=== PATIENT | female | born 1955 | race Caucasian/White ===

== ENCOUNTER 2023-02-27 07:34 | Outpatient (REF) | payer MEDICAID, SELFPAY ==
--- NOTE | ~2023-02-27 | XR_ITS ---
EXAMINATION: XR KNEE, RIGHT CLINICAL INFORMATION: Right knee pain COMPARISON: None available. TECHNIQUE: Four views of the right knee. FINDINGS: There is mild loss of medial and patellofemoral compartment joint space. No visible acute fracture, dislocation or loose body seen. Small pancreas. Patellar enthesophyte is noted. The soft tissues are normal. XR/XR knee RT 3V IMPRESSION: Mild degenerative changes medial and patellar femoral compartment. No visible acute fracture or dislocation seen.
== END 2023-02-27 07:35 | disposition home or self-care (01) ==
LOC: HO.HOSX 07:34
PROVIDERS: Visit Provider Orthopaedic Surgery
DX: M25.561 Pain in right knee (principal)
CPT/HCPCS: 73562; 99202

== ENCOUNTER 2023-02-27 09:12 | Outpatient (AMB) | payer MEDICAID, SELFPAY ==
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
[2023-02-27 09:50] VITALS: BMI 31.6
== END 2023-02-27 10:05 | disposition home or self-care (01) ==
PROVIDERS: PCP Internal Medicine; Visit Provider Orthopaedic Surgery
DX: M25.561 Pain in right knee (principal)
CPT/HCPCS: 99202

== ENCOUNTER 2023-04-03 13:05 | Outpatient (AMB) | payer MEDICAID, SELFPAY ==
[2023-04-03 13:20] VITALS: BMI 31.6
--- NOTE | 2023-04-03 13:20 | A.OFFVIS_ITS ---
Intake Vital Signs 04/03/23 13:20 Height 5 ft 5 in Weight 190 lb BMI 31.6 Intake Visit Reasons: New Prob- B/L hand and finger pain Intake Note: Jose 67 yr old female who is right hand dominant, presents today with her son for pain in bilateral numbness and tingling. There from [facility], and her son is acting as an japanese interpreter. She States her right hand is currently worse. States this started about 2 yrs, wakes her up at night due to numbness and has weakness. She feels like the numbness is more intermittent than constant Also son mentioned she is having cramping in both hands but right is still worse. She also gets pain radiating up both arms to her shoulders and her neck bilaterally. No EMG done. Denies bracing, therapy or injection. Patient states she has to take a sleeping pill to help get good sleep. Hx of DM but is not sure of her A1C number. Allergies No Known Allergies Allergy (Verified 04/03/23 13:30) HPI New Prob- B/L hand and finger pain HPI Details Jose Prater is a 67-year-old right hand dominant woman who presents today with her son to the office for an evaluation of bilateral hand numbness and tingling. There from [facility], and her son is acting as an japanese interpreter. She states that her right hand is currently worse. She states that her numbness and pain started about 2 years ago. She wakes up at night due to numbness and has weakness. She feels that radiates up her arm. She also complains of pain that radiates up her arm to her shoulder to her neck bilaterally. The patient?s son mentioned she is having cramping in both hands but right is still worse. No EMG done. Denies bracing, therapy or injection. The patient states that she has to take a sleeping pill to help get good sleep. She has a history of DM but is not sure of her HbA1C number. 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 Review of Systems Const All systems reviewed & are unremarkable except as noted in HPI and below Physical Exam Vital Signs: BMI result Body Mass Index 31.6 Const General: cooperative, healthy appearing and no acute distress Orientation/consciousness: patient oriented x3 HEENT Head: Yes normocephalic and Yes atraumatic Eyes EOM: EOMs intact bilaterally Resp Effort & Inspection: normal respiratory effort and able to speak in complete sentences Cardio Jugular venous distension: no JVD Skin General skin exam: turgor normal, ecchymosis (No) and erythema (No) Rashes: no rashes Trauma: no lacerations or abrasions Neuro Other: Vascular: Cap refill brisk General: patient oriented x3 Extrem Other: Evaluation of bilateral Upper Extremity: Neuro: Median, ulnar, radial nerves motor and sensory grossly intact today. No thenar or intrinsic wasting. Good finger cross, abduction/adduction, and APB muscle belly firing bilaterally.. Vascular: Cap refill brisk. ROM: Can bring fingers closed to a fist and back out to full or nearly full extension. No locking or catching visualized. Smooth and painless wrist ROM Skin: No lacerations or abrasions. General: No eccymosis. No erythema or evidence of infection. Psych Appearance: grossly normal Affect: normal affect Attitude: cooperative Assessment & Plan Assessment & Plan (1) Numbness and tingling in both hands: Code(s): R20.0 - Anesthesia of skin; R20.2 - Paresthesia of skin Plan Assessment and plan: 1. Bilateral hand numbness and tingling. Intermittent but daily I educated the patient and her son about this condition. We fitted her with a Velcro wrist splint for the right hand, her worst hand, to wear at nighttime to see if this alleviates some of her symptoms. I Ordered a nerve conduction study today in the office. She will follow-up with me after this study. 2. More generalized bilateral arm pain radiating up to her neck bilaterally. She may benefit either from an orthopedic consult if we think that is more her shoulders, or perhaps the non operative spine consult for evaluation of neck and C-spine related upper extremity pain. Scribed for Dr. Nicole Villalobos by Can Bryant, medical care evaluation specialist, on 04/03/2023. I, Dr. Nicole Villalobos, have personally reviewed and agree with the information entered by the scribe. Orders: Orders NE nerve conduction velocity Today R20.0 - Anesthesia of skin, R20.2 - Paresthesia of skin Coding Level of Care Code New Pt Level 3 (68080) Diagnoses Numbness and tingling in both hands R20.0; R20.2
== END 2023-04-03 14:22 | disposition home or self-care (01) ==
PROVIDERS: PCP Internal Medicine; Visit Provider Orthopaedic Surgery
DX: R20.0 Anesthesia of skin (principal); R20.2 Paresthesia of skin
CPT/HCPCS: 99203

== ENCOUNTER → 2023-04-03 13:05 | Outpatient (BNVA) | payer MEDICAID, SELFPAY | PROVIDERS: PCP Internal Medicine; Visit Provider Orthopaedic Surgery ==

== ENCOUNTER 2023-04-05 14:25 | Outpatient (REF) | payer MEDICAID, SELFPAY ==
--- NOTE | 2023-04-05 14:33 | EMG_ITS ---
Chief complaint: Hand pain Reason for referral: Evaluate for Carpal Tunnel Syndrome versus radiculopathy Referred by: Dr. Villalobos Procedure done: Bilateral upper extremities NCS/EMG Precautions and/or limitations: None The limb temperature was monitored continuously and remained between 32-36 degrees C during the performance of the NCS. Nerve Conduction Studies Anti Sensory Summary Table ?Stim Site NR Onset (ms) Norm Onset (ms) Peak (ms) Norm Peak (ms) O-P Amp (?V) Norm O-P Amp Site1 Site2 Delta-0 (ms) Dist (cm) Robert (m/s) Norm Robert (m/s) Left Median Anti Sensory (2nd Digit) Wrist ? 2.4 3.5 <3.6 24.5 >10 Wrist 2nd Digit 2.4 14.0 58 Right Median Anti Sensory (2nd Digit) Wrist ? 2.1 3.2 <3.6 31.3 >10 Wrist 2nd Digit 2.1 14.0 67 Left Ulnar Anti Sensory (5th Digit) Wrist ? 1.7 2.9 <3.7 17.8 >15.0 Wrist 5th Digit 1.7 14.0 82 Right Ulnar Anti Sensory (5th Digit) Wrist ? 2.1 2.9 <3.7 11.4 >15.0 Wrist 5th Digit 2.1 14.0 67 Motor Summary Table ?Stim Site NR Onset (ms) Norm Onset (ms) O-P Amp (mV) Norm O-P Amp iAmp (mV) Amp (1st) (%) Site1 Site2 Delta-0 (ms) Dist (cm) Robert (m/s) Norm Robert (m/s) Left Median Motor (Abd Poll Brev) Wrist ? 3.6 <3.9 7.9 >4.5 9.2 100.0 Elbow Wrist 3.6 20.5 57 >45 Elbow ? 7.2 7.7 8.8 97.5 Right Median Motor (Abd Poll Brev) Wrist ? 3.4 <3.9 7.4 >4.5 9.0 100.0 Elbow Wrist 4.4 21.0 48 >45 Elbow ? 7.8 5.5 6.5 74.3 Left Ulnar Motor (Abd Dig Minimi) Wrist ? 2.6 <3.0 8.6 >5 11.0 100.0 B Elbow Wrist 2.8 17.0 61 >45 B Elbow ? 5.4 7.9 10.5 91.9 A Elbow B Elbow 1.7 10.0 59 >45 A Elbow ? 7.1 7.3 9.5 84.9 Right Ulnar Motor (Abd Dig Minimi) Wrist ? 2.6 <3.0 10.4 >5 12.2 100.0 B Elbow Wrist 2.9 19.0 66 >45 B Elbow ? 5.5 10.2 12.1 98.1 A Elbow B Elbow 1.6 10.0 63 >45 A Elbow ? 7.1 9.4 11.3 90.4 Comparison Summary Table ?Stim Site NR Peak (ms) Norm Peak (ms) P-T Amp (?V) Site1 Site2 Delta-P (ms) Norm Delta (ms) Right Median/Radial Dig I Comparison (Digit 1 - 10cm) Median ? 2.7 <2.9 31.7 Median Radial 0.3 Radial ? 2.4 <2.8 9.0 EMG ?Side Muscle Nerve Root Ins Act Fibs Psw Amp Dur Poly Recrt Int Pat Comment Right 1stDorInt Ulnar C8-T1 Nml Nml Nml Nml Nml 0 Nml Complete Right FlexCarRad Median C6-7 Nml Nml Nml Nml Nml 0 Nml Complete Right Biceps Musculocut C5-6 Nml Nml Nml Nml Nml 0 Nml Complete Right Triceps Radial C6-7-8 Nml Nml Nml Nml Nml 0 Nml Complete Right Deltoid Axillary C5-6 Nml Nml Nml Nml Nml 0 Nml Complete Left 1stDorInt Ulnar C8-T1 Nml Nml Nml Nml Nml 0 Nml Complete Left FlexCarRad Median C6-7 Nml Nml Nml Nml Nml 0 Nml Complete Left Biceps Musculocut C5-6 Nml Nml Nml Nml Nml 0 Nml Complete Left Triceps Radial C6-7-8 Nml Nml Nml Nml Nml 0 Nml Complete Left Deltoid Axillary C5-6 Nml Nml Nml Nml Nml 0 Nml Complete FINDINGS: All motor and sensory nerves tested showed normal latencies, amplitudes and conduction velocities. Concentric needle EMG was performed in selected muscles of the bilateral upper extremities. Study did not reveal signs of electric abnormalities as shown in the table below. IMPRESSION: 1. This is a normal study. 2. There is no electrodiagnostic evidence for median neuropathy, ulnar neuropathy, brachial plexopathy, or cervical radiculopathy. Thank you for your kind referral. Sandra Gonzalez MD, RUBEN Board Certified, [place] [employer] and [employer] (ABPMR) Board Certified, [place] [employer] of Electrodiagnostic Medicine (ABEM) CODIN 25177 x 2 MTDD
== END 2023-04-05 14:26 | disposition home or self-care (01) ==
LOC: HO.NEURO 14:25
PROVIDERS: PCP Internal Medicine; Visit Provider Orthopaedic Surgery
DX: R20.0 Anesthesia of skin (principal); R20.2 Paresthesia of skin
CPT/HCPCS: 95886; 95911

== ENCOUNTER → 2023-04-05 14:33 | Outpatient (BNV) | payer MEDICAID, SELFPAY | PROVIDERS: PCP Internal Medicine; Visit Provider Physical Medicine & Rehabilitation | DX: M79.641 Pain in right hand (principal); M79.642 Pain in left hand | CPT/HCPCS: 95886; 95911 ==